=== PATIENT | male | born 1985 | race Caucasian/White ===

== ENCOUNTER → 2022-05-03 10:08 | Outpatient (CLI) | payer OTHER, SELFPAY ==
[2022-05-03 10:27] LABS: Add Manual Diff / Slide Review NO; Basophils Absolute Auto 0 /uL (0-100); Basophils Percent Auto 0.4 % (0-2); Eosinophils Absolute Auto 200 /uL (0-450); Eosinophils Percent Auto 2.1 % (2-4); Hematocrit 29.3 % (41-53); Hemoglobin 9.6 g/dL (13.5-17.5); Lymphocytes Absolute Auto 1300 /uL (1100-4500); Lymphocytes Percent Auto 14.2 % (25-40); Mean Corpuscular HGB Conc 32.9 % (30-36); Mean Corpuscular Hemoglobin 23.1 PG (26-34); Mean Corpuscular Volume 70.2 fL (80-100); Monocytes Absolute Auto 600 /uL (0-900); Monocytes Percent Auto 6.1 % (3-14); Neutrophils Absolute Auto 7000 /uL (1500-7000); Neutrophils Percent Auto 77.2 % (50-75); Platelet Count 342 X10^3/uL (150-400); Red Blood Cell Count 4.17 X10^6/uL (4.5-5.9); Red Cell Distribution Width 27.3 % (11.6-14.8); White Blood Cell Count 9.1 X10^3/uL (4.5-11.0)
[2022-05-03 10:39] LABS: Dimorphic RBC 1
== END ==
PROVIDERS: Referring Provider Internal Medicine Medical Oncology; Visit Provider Internal Medicine Medical Oncology
DX: D64.9 Anemia, unspecified (principal)
CPT/HCPCS: 36415; 85025

== ENCOUNTER 2022-09-08 10:31 | Emergency (ER) | payer OTHER, SELFPAY ==
[2022-09-08 11:00] VITALS: BP 148/92; PULSE 82; RESP 15; TEMP 36.6; O2SAT 98; BMI 36.9
[2022-09-08] MEDS: DOXYCYCLINE HYCLATE 100 MG TABLET PO (11:14)
--- NOTE | 2022-09-08 11:22 | ED_ITS ---
HPI - Skin/Abscess/Foreign Bdy General Chief complaint: Skin/Abscess/Foreign Body Stated complaint: Sent by KURT Charbel infection LT hand middle finger Time Seen by Provider: 09/08/22 10:35 Source: patient Mode of arrival: Ambulatory History of Present Illness HPI narrative: 36-year-old male nonsmoker with noncontributory medical history presents with a chief complaint of a worsening infection on his left middle finger. He 1st noticed a small ingrown hair on the dorsum of his left middle finger a few days ago and pulled it out with some tweezers, he states it then looked like a small pimple on the dorsum of his finger and over the past day or 2 he was able to squeeze some pus out. Today he developed a small amount of swelling on the dorsum of his hand and was seen and evaluated at [facility] and instructed to come here for further evaluation. He has no systemic findings such as fever chills nor nausea, vomiting or diarrhea. There is no redness on the underside of his finger or palm. He has no problem making a fist and has full range of motion of his fingers. He is otherwise well and free of complaint Related Data Home Medications Medication Instructions Recorded Confirmed multivitamin 1 tab PO DAILY 02/22/22 06/28/22 Previous Rx's Medication Instructions Recorded doxycycline hyclate 100 mg tablet 100 mg PO BID #20 tabs 09/08/22 Allergies Allergy/AdvReac Type Severity Reaction Status Date / Time No Known Drug Allergies Allergy Verified 09/08/22 11:00 Review of Systems Review of Systems Narrative: GENERAL: Denies chills, fatigue, malaise, fever, sweats. HEENT: Denies sinus pain, ear pain, sore throat, difficulty swallowing, dizziness. RESPIRATORY: Denies dyspnea, cough, wheezing, hemoptysis, sputum. CARDIOVASCULAR: Denies chest pain, palpitations, orthopnea, edema, GASTROINTESTINAL: Denies nausea, vomiting, abdominal pain, diarrhea, constipation, melena. : Denies dysuria, frequency, incontinence, hematuria, urinary retention. MUSCULOSKELETAL: See HPI SKIN: See HPI NEUROLOGIC: Denies weakness, headache, numbness, change in speech, confusion, seizures, incoordination. PSYCHIATRIC: No concerning psychosocial issues. 12 point review of systems is negative except for those stated above Patient History Social History (Reviewed 09/08/22 @ 11:24 by POOJA Giang Smoking Status: Unknown if ever smoked Smoking Status: Unknown if ever smoked alcohol intake frequency: holidays/special occasions only Substance Use Type: does not use Exam Narrative Exam Narrative: GENERAL: [36] year old patient appears stated age. Well-developed patient, in no obvious distress. HEAD: Atraumatic. Normocephalic. EYES: Pupils equal round and reactive. Extraocular motions intact. No scleral icterus. No injection or drainage. ENT: Nose without bleeding, purulent drainage. Throat without erythema, tonsillar hypertrophy or exudate. Airway patent. NECK: Trachea midline. Non tender CARDIOVASCULAR: Regular rate and rhythm without murmurs, gallops, or rubs. RESPIRATORY: Clear to auscultation. Breath sounds equal bilaterally. No wheezes, rales, or rhonchi. GASTROINTESTINAL: Abdomen soft, non-tender, nondistended. EXTREMITIES: Small spontaneously draining abscess on the dorsal aspect of left middle finger overlying proximal phalanx. Minimal surrounding erythema which is not circumferential. Minimal swelling on dorsum of hand without tenderness, induration or fluctuance. No lymphangitis. No pain on palmar surface or long distribution of flexor tendon. Patient able to make a fist without difficulty. No circumferential swelling or evidence of foreign body BACK: Nontender without deformity or crepitance. No flank tenderness. NEURO: AOx3. SKIN: No rash or erythema of visible areas Initial Vital Signs Initial Vital Signs: Vital Signs Temperature 97.9 F 09/08/22 11:00 Pulse Rate 82 09/08/22 11:00 Respiratory Rate 15 09/08/22 11:00 Blood Pressure 148/92 H 09/08/22 11:00 Pulse Oximetry 98 09/08/22 11:00 Oxygen Delivery Method 09/08/22 11:00 Course Orders Ordered: Discontinued Medications Doxycycline Hyclate (Doxycycline Hyclate 100 Mg Tablet) 100 mg PO NOW ONE Stop: 09/08/22 11:12 Last Admin: 09/08/22 11:14 Dose: 100 mg Documented By: LISA Vital Signs Vital signs: Vital Signs - 8 hr 09/08/22 11:00 Temperature 97.9 F Pulse Rate 82 Respiratory Rate 15 Blood Pressure 148/92 H Pulse Oximetry 98 Oxygen Delivery Method Room Air MDM - Skin/Abscess/Foreign Bdy MDM Narrative Medical decision making narrative: [36-year-old male presents at request of his doctor for evaluation of finger infection.] Multiple etiologies for patient's symptoms considered including, but not limited to: [Small abscess, cellulitis, deep space infection, tenosynovitis versus other] Prior Charts reviewed: Prior charts in EMR reviewed Patient with small superficial abscess on dorsum of left middle finger with minimal surrounding erythema. There is minimal swelling on the dorsal aspect of the hand and as noted no induration or fluctuance nor pain on the palmar aspect to suggest a deep space infection. Patient with full painless range of motion of his hand, no pain along flexor tendon (Negative Kanavel's Signs), tenosynovitis considered but thought extremely unlikely. Labs and imaging considered but extremely unlikely to change the course. Patient given 1st dose of doxycycline here, prescription sent to his pharmacy of choice Findings and discharge diagnosis discussed with patient/family followed by verbalization of understanding Return precautions discussed with patient/family whom verbalize understanding of diagnosis and plan Discharge Plan Departure Patient Disposition: Home Clinical Impression: Abscess of left middle finger Instructions: DI for Cellulitis -- Adult, DI for Skin Abscess Activity Restrictions/Additional Instructions: *You have been diagnosed with [ middle finger infection with spontaneously draining abscess and minimal surrounding cellulitis. No deep space infection or signs of tenosynovitis] *What to do: *Please continue to take your regular medications as directed. [ x] New medication prescriptions sent to your pharmacy: [ [facility] in [place]] [ ] New medication written as a paper prescription [ ] No new medications given *Please follow up with your primary care provider in 2-3 days, call for an appointment. Let them know you were seen in the Emergency Department and that we ask that you be seen in follow up. We will electronically transmit a record of today's note if your PCP is in our system *Return to Emergency Department if you should have any new, worsening or concerning symptoms, such as [fever greater than 101 F, shaking chills, increased swelling of your finger Prescriptions: New doxycycline hyclate 100 mg tablet 100 mg PO BID Qty: 20 0RF No Action multivitamin Tablet 1 tab PO DAILY Referrals: [facility] [Primary Care Provider] - Stand Alone Forms: Patient Portal/API
== END 2022-09-08 11:20 | disposition home or self-care (01) ==
PROVIDERS: Emergency Provider Emergency Medicine
DX: L02.512 Cutaneous abscess of left hand (principal)
CPT/HCPCS: 99283

== ENCOUNTER 2023-07-28 11:18 | Emergency (ER) | payer OTHER, SELFPAY ==
[2023-07-28 11:20] VITALS: BP 150/84; PULSE 85; RESP 17; TEMP 36.9; O2SAT 100
--- NOTE | 2023-07-28 11:27 | DI.RAD.S_ITS ---
PROCEDURE: XR FINGER RT MIN 2V INDICATIONS: hyperextended thumb. injury TECHNIQUE: AP hand, 2 views of the right 1st finger(s) acquired. COMPARISON: None. FINDINGS: Bones: No fractures or dislocations. No suspicious bony lesions. Soft tissues: No suspicious soft tissue calcifications. IMPRESSION: No acute bony abnormality. Dictated by: Fabiola Ham MD, PhD on 07/28/2023 at 12:06 Approved by: Fabiola Ham MD, PhD on 07/28/2023 at 12:07
--- NOTE | 2023-07-28 11:30 | ED_ITS ---
HPI - Extremity Injury (Upper) <INDRA Adhikari Last Filed: 07/28/23 12:18> General Chief Complaint: Extremity Injury, Upper Stated Complaint: poss dislocation of rt thumb Time Seen by Provider: 07/28/23 11:30 History of Present Illness HPI narrative: This is a 37-year-old male presents emergency department due to right thumb pain. He was rolling up a rolled-up bouncy house when he got it caught in the bouncy house and ?saw?. States that he felt a pop back into place possibly he states that it is somewhat painful stiff now. Denies any numbness or any concerning signs or symptoms. Related Data Home Medications Medication Instructions Recorded Confirmed multivitamin 1 tab PO DAILY 02/22/22 06/28/22 Previous Rx's Medication Instructions Recorded doxycycline hyclate 100 mg tablet 100 mg PO BID #20 tabs 09/08/22 Allergies Allergy/AdvReac Type Severity Reaction Status Date / Time No Known Drug Allergies Allergy Verified 09/08/22 11:00 Review of Systems <INDRA Adhikari Last Filed: 07/28/23 12:18> Review of Systems Narrative: GENERAL: Denies chills, fatigue, malaise, fever, sweats. HEENT: Denies sinus pain, ear pain, sore throat, difficulty swallowing, dizziness. RESPIRATORY: Denies dyspnea, cough, wheezing, hemoptysis, sputum. CARDIOVASCULAR: Denies chest pain, palpitations, orthopnea, edema, GASTROINTESTINAL: Denies nausea, vomiting, abdominal pain, diarrhea, constipation, melena. : Denies dysuria, frequency, incontinence, hematuria, urinary retention. MUSCULOSKELETAL: Reports right thumb pain SKIN: Denies rash, skin lesions, or other NEUROLOGIC: Denies weakness, headache, numbness, change in speech, confusion, seizures, incoordination. PSYCHIATRIC: No concerning psychosocial issues. 12 point review of systems is negative except for those stated above Patient History <INDRA Adhikari Last Filed: 07/28/23 12:18> Social History Smoking Status: Unknown if ever smoked Smoking Status: Unknown if ever smoked alcohol intake frequency: holidays/special occasions only Substance Use Type: does not use Exam <Irwin Linn PA-C - Last Filed: 07/28/23 12:18> Narrative Exam Narrative: GENERAL: Well-developed patient, in mild distress. HEAD: Atraumatic. Normocephalic. EYES: Pupils equal round and reactive. Extraocular motions intact. No scleral icterus. No injection or drainage. ENT: Nose without bleeding, purulent drainage. Throat without erythema, tonsillar hypertrophy or exudate. Airway patent. NECK: Trachea midline. Non tender EXTREMITIES: Tenderness to palpation to base of the right thumb. Neurovascularly intact throughout. Range of motion decreased mildly secondary pain. No obvious dislocation. NEURO: AOx3. SKIN: No rash or erythema of visible areas Initial Vital Signs Initial Vital Signs: Vital Signs Temperature 98.4 F 07/28/23 11:20 Pulse Rate 85 07/28/23 11:20 Respiratory Rate 17 07/28/23 11:20 Blood Pressure 150/84 H 07/28/23 11:20 Pulse Oximetry 100 07/28/23 11:20 Oxygen Delivery Method Room Air 07/28/23 11:20 <DO Faisal García Last Filed: 07/28/23 17:22> Initial Vital Signs Initial Vital Signs: Vital Signs Temperature 98.4 F 07/28/23 11:20 Pulse Rate 85 07/28/23 11:20 Respiratory Rate 17 07/28/23 11:20 Blood Pressure 150/84 H 07/28/23 11:20 Pulse Oximetry 100 07/28/23 11:20 Oxygen Delivery Method Room Air 07/28/23 11:20 Course <Irwin Linn PA-C - Last Filed: 07/28/23 12:18> Orders Ordered: ED Orders 07/28/23 11:27 XR finger RT min 2V Stat Vital Signs Vital signs: Vital Signs - 8 hr 07/28/23 11:20 Temperature 98.4 F Pulse Rate 85 Respiratory Rate 17 Blood Pressure 150/84 H Pulse Oximetry 100 Oxygen Delivery Method Room Air <DO Faisal García Last Filed: 07/28/23 17:22> Orders Ordered: ED Orders 07/28/23 11:27 XR finger RT min 2V Stat Vital Signs Vital signs: Vital Signs - 8 hr 07/28/23 11:20 Temperature 98.4 F Pulse Rate 85 Respiratory Rate 17 Blood Pressure 150/84 H Pulse Oximetry 100 Oxygen Delivery Method Room Air MDM - Extremity Injury (Upper) <Irwin Linn PA-C - Last Filed: 07/28/23 12:18> Imaging Data Extremity x-ray #1: Radiologist's Impression: [address] [address] XRay Report Signed Patient: Todd Salcedo MR#: [id number] : 1985 Acct:[id number] Age/Sex: 37 / M Date of Service: 07/28/23 Loc: ED Accession Number: [id number] Procedure: XR finger RT min 2V Ordering Provider: Melissa Johnson D.O. PROCEDURE: XR FINGER RT MIN 2V INDICATIONS: hyperextended thumb. injury TECHNIQUE: AP hand, 2 views of the right 1st finger(s) acquired. COMPARISON: None. FINDINGS: Bones: No fractures or dislocations. No suspicious bony lesions. Soft tissues: No suspicious soft tissue calcifications. IMPRESSION: No acute bony abnormality. Dictated by: Fabiola Ham MD, PhD on 07/28/2023 at 12:06 Approved by: Fabiola Ham MD, PhD on 07/28/2023 at 12:07 [facility] Narrative Medical decision making narrative: ED course: This is a 37-year-old male presents emergency department due to a thumb injury yesterday with concern for dislocation. On exam there was no significant abnormalities although somewhat mildly tenderness to the touch with the base. X-ray was negative. Neurovascularly intact throughout. Recommended supportive care CC: Right thumb pain Complicating co-morbidities: None Data collected from: Previous notes Medical records reviewed: Patient was seen here roughly a year ago to an abscess of the left middle finger. No significant medical history. Patient was discharged with antibiotics. Differential considered, but not limited to: Right thumb dislocation, fracture, sprain Exam documented above, pertinent findings include: Tenderness to palpation to the base of the right thumb Lab Test results independently reviewed as above. Pertinent findings: None Imaging studies independently reviewed: No bony abnormality Scores Used: None MIPS Elements: None Consultations: None Treatments: None Re-evaluations: None Discussion: Discussed plan with the patient was comfortable with the plan Diagnosis: Right thumb sprain Disposition: see below, along with detailed discharge instructions that have been reviewed with patient as well as indications for ED re-evaluation and additional outpatient follow up Discharge Plan Departure Patient Disposition: Home Clinical Impression: Injury of thumb, right Activity Restrictions/Additional Instructions: Thank you for coming to the [facility] Emergency Department today. As we discussed your thumb and hand x-ray were unremarkable. They did not show any evidence of fracture or other bony abnormality. I recommend ibuprofen ice to help with the pain and swelling. If the pain continues after a couple of weeks I recommended speaking with the primary care provider for referral to Orthopedics. You may use an [id number] thumb splint at your comfort. Please return to the emergency department if you develop any significant worsening pain or any other concerning signs or symptoms. I hope you feel better soon. Please follow up with your primary care provider within a week if your symptoms continue. If you do not have a primary care provider please contact the [facility] Resource line at [phone]. They will ask some questions about your medical history and help you get set up with a provider in the community. Prescriptions: No Action multivitamin Tablet 1 tab PO DAILY doxycycline hyclate 100 mg tablet 100 mg PO BID Qty: 20 0RF Referrals: [facility] [Primary Care Provider] - Stand Alone Forms: Patient Portal/API ED Sign-out <Melissa Johnson DO - Last Filed: 07/28/23 17:22> Cosign ED Attending Jayant Attestation: I was immediately available in the department for consultation.
== END 2023-07-28 12:17 | disposition home or self-care (01) ==
PROVIDERS: Emergency Provider Physician Assistant Medical
DX: S69.91XA Unspecified injury of right wrist, hand and finger(s), initial encounter (principal); X58.XXXA Exposure to other specified factors, initial encounter
CPT/HCPCS: 73140; 99281; 99283

== ENCOUNTER 2024-10-23 22:12 | Emergency (ER) | payer OTHER, SELFPAY ==
[2024-10-23 22:20] VITALS: BP 131/89; PULSE 71; RESP 17; TEMP 36.6; O2SAT 97; BMI 36.9
--- NOTE | 2024-10-24 00:30 | PC.NURSE ---
Dr Palmer in to suture pt's wound
--- NOTE | 2024-10-24 00:31 | ED.WOUNDLAC ---
HPI - Wound/Laceration General Chief Complaint: Wound/Laceration Stated Complaint: cut lt thumb with knife Time Seen by Provider: 10/24/24 00:31 Source: patient Mode of arrival: Ambulatory History of Present Illness HPI narrative: 38-year-old male without any significant past medical history presents to the emergency department from home for evaluation of cut to thumb. Patient states that he is up-to-date on tetanus, states that he was working with a machete at around 9:30 p.m., states that he cut his left thumb, bleeding controlled not on any blood thinners, patient states that he was putting the machete back in the sheath when he sliced his finger, denies any other injuries. Related Data Allergies Allergy/AdvReac Type Severity Reaction Status Date / Time No Known Drug Allergies Allergy Verified 10/23/24 22:26 Review of Systems Review of Systems Narrative: General: Denies fever, chills, weight loss HEENT: Denies headache, eye drainage, eye irritation, head trauma, sore throat, voice change Cardiovascular: Denies any chest pain, palpitations, tachycardia Respiratory: Denies any shortness of breath, cough, wheeze, stridor GI/: Denies any abdominal pain, nausea, vomiting, diarrhea, bright red blood per rectum, melanotic stools, urinary frequency, urinary retention, dysuria, hematuria MSK: Positive Cut to the left thumb, Denies any joint pain, muscle pains, swelling Skin: Denies any rashes, lesions, discoloration Neuro: Denies any headache, lightheadedness, dizziness, fainting, weakness Psych: Denies SI/HI Patient History Social History Smoking Status: Never smoker Smoking Status: Never smoker alcohol intake frequency: holidays/special occasions only Exam Narrative Exam Narrative: General: Cooperative, well-developed, not in acute distress HEENT: Normocephalic, atraumatic, PERRLA, normal sclera, eyelids normal Neck: Active full range of motion, atraumatic Chest: Normal to inspection, negative crepitus, no overlying erythema ecchymosis Respiratory: Normal respiratory effort, not in acute respiratory distress, clear to auscultation bilaterally negative cough, wheeze, tachypnea, rhonchi, rales Cardiology: Regular rate rhythm negative gallop, murmur, rubs GI/: No tenderness to palpation, soft, non rigid, normal to inspection, exam deferred MSK: 1 cm laceration noted to the left thumb, bleeding controlled, neurovascularly intact no foreign body Full active range of motion in all 4 extremities, atraumatic, no tenderness to palpation of any bony prominences, Skin: No rashes or lesions noted Neuro: Alert awake oriented x3, moves all 4 extremities spontaneously, cranial nerves intact, able to answer all questions appropriately follows commands appropriately Psych: Cooperative, negative suicidal or homicidal ideations Initial Vital Signs Initial Vital Signs: Vital Signs Temperature 98 F 10/23/24 22:20 Pulse Rate 71 10/23/24 22:20 Respiratory Rate 17 10/23/24 22:20 Blood Pressure 131/89 10/23/24 22:20 Pulse Oximetry 97 10/23/24 22:20 Oxygen Delivery Method Room Air 10/23/24 22:20 Procedures Laceration Repair Laceration 1: Time of procedure: 00:56 Site: hand (Left thumb) Size (cm): 1 Description: linear Depth: simple, single layer Local Anesthetic: lidocaine 1% Amount of anesthesia used (mL): 5 Skin layer closed with: other (Ethilon) Skin layer suture size: 4-0 Number of sutures: 5 Technique: simple, interrupted Course Vital Signs Vital signs: Vital Signs - 8 hr 10/23/24 22:20 Temperature 98 F Pulse Rate 71 Respiratory Rate 17 Blood Pressure 131/89 Pulse Oximetry 97 Oxygen Delivery Method Room Air MDM - Wound/Laceration Differential Diagnosis Differential diagnosis: Likely laceration, abrasion and avulsion of skin MDM Narrative Medical decision making narrative: 38-year-old male without any significant past medical history presents to the emergency department for laceration to the left thumb, patient states that he was putting his machete away in the sheath and it caught his thumb, on exam neurovascularly intact 1 cm noted to the palmar aspect of the thumb, bleeding controlled, patient had laceration repair with 5 simple interrupted sutures 4-0 Ethilon. Patient was given strict return precautions verbalized understanding of this and agrees to being discharged home with outpatient follow up. Patient is up-to-date on his tetanus. Discharge Plan Departure Patient Disposition: Home Clinical Impression: Laceration of thumb Instructions: How to Care for a Laceration After Repair, DI for Laceration Repair Activity Restrictions/Additional Instructions: You have 5 sutures that need to be removed in 7-10 days Please follow up with your primary care doctor Please read the discharge instructions sheet carefully and bring all papers to all doctor follow-up visits, as it may contain information that your doctor may want to see. Disease processes change and evolve, if your symptoms worsen or if you develop any new symptoms that are concerning to you please return for evaluation. Your evaluation today does not show any evidence of any life-threatening/serious illnesses requiring admission to the hospital or surgery. Please follow-up with your doctor for re-evaluation in approximately 1 day. Seek immediate medical attention for any worrisome symptoms. *If you do not have a primary care provider please contact the [facility] Resource line at [phone]. They will ask some questions about your medical history and help get you set up with a doctor in the community. Referrals: [facility] [Primary Care Provider] - Stand Alone Forms: Patient Portal/API/Survey
[2024-10-24 01:03] VITALS: BP 126/78; PULSE 68; RESP 16; O2SAT 100
== END 2024-10-24 01:04 | disposition home or self-care (01) ==
PROVIDERS: Emergency Provider Student in an Organized Health Care Education/Training Program
DX: S61.012A Laceration without foreign body of left thumb without damage to nail, initial encounter (principal); W26.0XXA Contact with knife, initial encounter
CPT/HCPCS: 12001; 99282; 99283